=== PATIENT | female | born 1950 | race Caucasian/White ===

== ENCOUNTER → 2017-05-06 | Outpatient (CLI) | payer BC ==
[~2017-05-06] MED LIST: ALAVERT10 M1 PO; BIRTH CONTROL; CARDI-OMEGA1000 MG PO; CELEXA 20MG20 MG/TAB PO; LEVOTHYROXIN0.075 MG PO; LORTAB 5/500 501 TAB PO; MULTI VITAMINS1 TAB PO; NORCO 325 MG-51 TAB PO; SERTRALINE; VITAMIN D32000 IU; [UNRECOGNIZED DRUG - OTHER]
== END ==
LOC: MC.RAD 15:20
DX: Z12.31 Encounter for screening mammogram for malignant neoplasm of breast (principal)

== ENCOUNTER 2019-05-11 08:15 | Day surgery (SDC) | payer BC ==
[~2019-05-11] VITALS: Ht 172.8 cm; Wt 130.0 kg
[2019-05-11] VITALS (10 sets, daily range): BP systolic 138–157; BP diastolic 60–87; PULSE 68–87; TEMP 98.4
[~2019-05-11 08:15] MED LIST changes: -BIRTH CONTROL; +ESTRACE0.5 MG PO
[2019-05-11 08:47] LABS: HEMATOCRIT 43.1 % (37.0-47.0); HEMOGLOBIN 14.1 g/dl (12.5-16.0); MEAN CELL VOLUME 88 fl (80.0-100.0); MEAN CORPUSCULAR HEMOGLOBIN 29 pg (27.0-31.0); MEAN CORPUSCULAR HGB CONC 33 g/dl (33.0-37.0); MEAN PLATELET VOLUME 9.1 fl (7.4-10.4); PLATELET COUNT 501 K/mm3 (130-400); RED BLOOD COUNT 4.91 M/mm3 (4.10-5.30); REDCELL DISTRIBUTION WIDTH-CV 13.4 % (11.5-14.5)
[2019-05-11 08:52] LABS: INR 0.9 (0.8-3.0); PROTHROMBIN TIME 10.4 SECONDS (9.7-12.8)
[2019-05-11 08:56] LABS: CALCIUM 9.8 mg/dL (8.4-10.2); CREATININE, serum 0.61 (0.52-1.25); POTASSIUM 4.2 mmol/L (3.4-5.0)
[2019-05-11] MEDS ORDERED: PREDNISONE10 MG PO (09:14)
[2019-05-11] MEDS ORDERED: VITAMINC1000TA PO (09:15)
[2019-05-11] MEDS ORDERED: DULCOLAX TAB5 MG PO (09:15)
[2019-05-11] MEDS ORDERED: ADVIL200 MG PO (09:16)
[2019-05-11] MEDS ORDERED: LOTRIMIN15 GM TOP (09:16)
[2019-05-11] MEDS ORDERED: EPA FISH OIL1 SGL PO (09:17)
[2019-05-11] MEDS ORDERED: ASPERCREME85G TP (09:18)
[2019-05-11] MEDS ORDERED: PHENERGAN W/CO120 M1 PO (09:18)
[2019-05-11] MEDS ORDERED: GALZIN50 MG PO (09:19)
--- NOTE | 2019-05-11 10:57 | NUR ---
ALL MEDICATIONS GIVEN VORB WITH MD. SEE MERGE FOR ALL MEDICATION ADMIN TIMES. SEE MERGE FOR ALL RASS ASSESSMENTS DURING AND POST PROCEDURE. POSITIVE BARBEAU'S TEST IN THE RIGHT WRIST, PULSE +2.
--- NOTE | 2019-05-11 11:18 | NUR ---
Back from [employer]. Report from Khris FANG. Radial Tband to right wrist with 12 cc air in band, good pulses and cap refill < 3secs noted. VSS.
--- NOTE | 2019-05-11 11:38 | NUR ---
Unable to give report to ANNALISA Perez in express unit. Bedside report given to ANNALISA Cobian. TR band remains clean, dry, and intact, no oozing or hematoma noted at this time. Cap refill <3 seconds. No pain per patient. Discussed wrist restrictions with patient and friend at bedside. TR band in place with 12 ml of air in the band. VS stable. All questions and concerns addressed at this time.
[2019-05-11] MEDS ORDERED: ASPIRIN E.C. 8181 MG PO (12:22)
--- NOTE | 2019-05-11 13:33 | NUR ---
12 cc air out of Tband over 15 minutes.
--- NOTE | 2019-05-11 14:10 | NUR ---
Ambulates with steady gait. INT discontinued intact.
--- NOTE | 2019-05-11 14:28 | NUR ---
Discharge instructions given three times with friend Irina Maverick verbalizing understanding, because pt was saying she did not understand about keeping site covered. Irina will be with pt until pt daughter is done working today and Irina said she would give daughter printed discharge and explain the covering of the site. Transferred to private car by shannan
== END 2019-05-11 14:34 | disposition home or self-care (01) ==
LOC: COL.CAR 08:15
PROVIDERS: Internal Medicine Cardiovascular Disease
DX: I25.10 Atherosclerotic heart disease of native coronary artery without angina pectoris (principal); J30.9 Allergic rhinitis, unspecified; E03.9 Hypothyroidism, unspecified; M19.90 Unspecified osteoarthritis, unspecified site; Z88.0 Allergy status to penicillin; Z79.52 Long term (current) use of systemic steroids; F17.210 Nicotine dependence, cigarettes, uncomplicated; Z80.9 Family history of malignant neoplasm, unspecified; R94.39 Abnormal result of other cardiovascular function study
CPT/HCPCS: J1644; J2250; J3010; Q9967

== ENCOUNTER → 2019-10-08 | Outpatient (CLI) | payer BC ==
[~2019-10-08] MED LIST changes: +ADVIL200 MG PO; +ASPERCREME85G TP; +ASPIRIN E.C. 8181 MG PO; +DULCOLAX TAB5 MG PO; +EPA FISH OIL1 SGL PO; +GALZIN50 MG PO; +LOTRIMIN15 GM TOP; +PHENERGAN W/CO120 M1 PO; +PREDNISONE10 MG PO; +VITAMINC1000TA PO
== END ==
LOC: MC.RAD 15:44
DX: Z12.31 Encounter for screening mammogram for malignant neoplasm of breast (principal)

== ENCOUNTER → 2022-01-19 | Outpatient (CLI) | payer MEDICARE, BC | LOC: MC.RAD 11:30 | DX: Z12.31 Encounter for screening mammogram for malignant neoplasm of breast (principal) ==

== ENCOUNTER → 2022-02-28 | Outpatient (CLI) | payer MEDICARE, BC | LOC: COL.RAD 02-26 15:00 | DX: Z12.2 Encounter for screening for malignant neoplasm of respiratory organs (principal); J43.9 Emphysema, unspecified; F17.210 Nicotine dependence, cigarettes, uncomplicated ==

== ENCOUNTER 2022-04-05 09:25 | Day surgery (SDC) | payer MEDICARE, BC ==
[~2022-04-05] VITALS: Ht 172.7 cm; Wt 85.3 kg
[2022-04-05] VITALS (10 sets, daily range): BP systolic 115–151; BP diastolic 57–76; PULSE 63–80; TEMP 98.7
[~2022-04-05 09:25] MED LIST changes: -ALAVERT10 M1 PO; +CLARITIN 1010 MG/TAB PO; -LEVOTHYROXIN0.075 MG PO; +SYNTHROID0.075 MG/T PO; +VITAMIN D31000 I1 PO; -VITAMIN D32000 IU
[2022-04-05] MEDS ORDERED: ASPIRIN E.C. 8181 MG PO (09:56)
[2022-04-05] MEDS ORDERED: ZINC PO (10:07)
[2022-04-05] MEDS ORDERED: TEMOVATEE15CR TOP (10:07)
[2022-04-05] MEDS ORDERED: SALINE 45 ML45 ML NS (10:08)
[2022-04-05] MEDS ORDERED: SYSTANE 0.4%-0.1 SOL OU (10:08)
[2022-04-05] MEDS ORDERED: LIPITOR 40MG TA40 MG PO (10:09)
[2022-04-05] MEDS ORDERED: PLAQUENIL 200M200 MG PO (10:10)
[2022-04-05] MEDS ORDERED: PRINIVIL10 MG PO (10:10)
[2022-04-05] MEDS ORDERED: CALCIUM-MAGNES1 EAC1 PO (10:13)
[2022-04-05 10:36] LABS: HEMATOCRIT 40.5 % (37.0-47.0); HEMOGLOBIN 13.7 g/dl (12.5-16.0); MEAN CELL VOLUME 88 fl (80.0-100.0); MEAN CORPUSCULAR HEMOGLOBIN 30 pg (27-31); MEAN CORPUSCULAR HGB CONC 34 g/dl (33.0-37.0); MEAN PLATELET VOLUME 9.8 fl (7.4-10.4); PLATELET COUNT 308 K/mm3 (130-400); REDCELL DISTRIBUTION WIDTH-CV 13.3 % (11.5-14.5)
[2022-04-05 10:48] LABS: PARTIAL THROMBOPLASTIN TIME 39.1 SECONDS (26.0-37.0)
[2022-04-05 10:53] LABS: CALCIUM 9.5 mg/dL (8.4-10.2); CREATININE, serum 0.75 mg/dL (0.57-1.11); POTASSIUM 4.5 mmol/L (3.5-4.5)
--- NOTE | 2022-04-05 12:03 | NUR ---
PATIENT ALERT AND ORIENTED, NO REPORTS OF CHEST PAIN, CONSENT SIGNED. SEE MERGE FOR CATH DOCUMENTATION INCLUDING HEMODYNAMIC MONITORING WELL MEDICATION ADMINISTRATION.
--- NOTE | 2022-04-05 12:26 | NUR ---
Pt back from electrical laboratory technician. pt is awake and alert, pwd. TR band to rt wrist, cms intact distal. SR on monitor. VSS. pt updated on poc. lunch ordered.
--- NOTE | 2022-04-05 16:30 | NUR ---
Pt ready for discharge. TR band was deflated with no problem. site dressed with bandaid, folded d2x2 and coban, cms remains intact distal. I reviewed dc/fu instructions with pt who verbalized understnading./ To exit via wheelchair.
== END 2022-04-05 16:30 | disposition home or self-care (01) ==
LOC: COL.CAR 09:25
PROVIDERS: Internal Medicine Cardiovascular Disease
DX: I25.110 Atherosclerotic heart disease of native coronary artery with unstable angina pectoris (principal); R94.39 Abnormal result of other cardiovascular function study
CPT/HCPCS: J1644; J2250; J3010